=== PATIENT | male | born 1995 | race Caucasian/White ===

== ENCOUNTER → 2016-08-23 | Outpatient (CLI) | payer OTHER | LOC: BHSO 12:03 | DX: F41.1 Generalized anxiety disorder (principal) ==

== ENCOUNTER 2020-04-19 17:41 | Emergency (ER) | payer BC ==
[~2020-04-19] VITALS: Ht 172.7 cm; Wt 84.1 kg
[2020-04-19 17:52] VITALS: TEMP 98.6
[2020-04-19 19:07] VITALS: BP 124/73; PULSE 99
== END 2020-04-19 19:07 | disposition home or self-care (01) ==
LOC: COL.ER 17:41
DX: U07.1 COVID-19 (principal)

== ENCOUNTER 2020-07-18 15:56 | Emergency (ER) | payer BC ==
[~2020-07-18] VITALS: Ht 172.7 cm; Wt 84.1 kg
[2020-07-18 16:40] LABS: COLLECTION METHOD CLEAN CATCH
[2020-07-18 16:53] LABS: MUCOUS Present /lpf; PH 6 (5-8); SQUAMOUS EPITHELIAL 0-2 /hpf; URINE APPEARANCE Clear; URINE BACTERIA None Seen /hpf; URINE BILIRUBIN Negative (NEGATIVE); URINE BLOOD Negative (NEGATIVE); URINE COLOR Yellow; URINE GLUCOSE Negative (NEGATIVE); URINE KETONE Negative (NEGATIVE); URINE LEUKOCYTE ESTERASE Negative (NEGATIVE); URINE NITRATE Negative (NEGATIVE); URINE PROTEIN(semi-quant) Negative (NEGATIVE); URINE UROBILINOGEN Negative (NEGATIVE)
[2020-07-18 17:25] VITALS: BP 124/74; PULSE 80; TEMP 98.1
== END 2020-07-18 17:35 | disposition home or self-care (01) ==
LOC: COL.ER 15:56
PROVIDERS: Nurse Practitioner
DX: R30.0 Dysuria (principal)
CPT/HCPCS: J0696

== ENCOUNTER 2021-05-22 09:28 | Emergency (ER) | payer BC ==
[~2021-05-22] VITALS: Ht 172.7 cm; Wt 88.6 kg
[2021-05-22 09:34] VITALS: TEMP 99.2
[2021-05-22 09:55] LABS: BASO % 0.3 % (0.0-2.0); EOS % 0.4 % (0.0-4.0); GRAN # 4.6 K/mm3 (1.4-6.5); HEMATOCRIT 43.5 % (42.0-52.0); HEMOGLOBIN 14.9 g/dl (13.5-18.0); LYMPH # 1.5 K/mm3 (1.2-3.4); LYMPH % 21.1 % (20.0-51.0); MEAN CELL VOLUME 85 fl (80.0-100.0); MEAN CORPUSCULAR HEMOGLOBIN 29 pg (27-31); MEAN CORPUSCULAR HGB CONC 34 g/dl (33.0-37.0); MEAN PLATELET VOLUME 10.8 fl (7.4-10.4); MONO # 0.8 K/mm3 (0.1-0.6); MONO % 11.9 % (1.7-9.3); PLATELET COUNT 178 K/mm3 (130-400); RED BLOOD COUNT 5.11 M/mm3 (4.20-5.60); REDCELL DISTRIBUTION WIDTH-CV 11.9 % (11.5-14.5)
[2021-05-22 10:24] LABS: ALANINE AMINOTRANSFERASE 27 U/L (0-55); ALBUMIN 4.3 gm/dL (3.5-5.0); ALKALINE PHOSPHATASE 67 U/L (40-150); ANION GAP 10 mmol/L (7-16); AST,SGOT 27 U/L (5-34); BILIRUBIN,TOTAL 0.3 mg/dL (0.2-1.2); BLOOD UREA NITROGEN 7 mg/dL (9-21); CALCIUM 9.6 mg/dL (8.4-10.2); CARBON DIOXIDE 24 mmol/L (22-29); CHLORIDE 105 mmol/L (98-107); CREATININE, serum 1.06 mg/dL (0.72-1.25); GLUCOSE 87 mg/dL (70-99); POTASSIUM 3.9 mmol/L (3.5-4.5); SODIUM 139 mmol/L (136-145); TOTAL PROTEIN 8.5 gm/dL (6.2-8.1)
[2021-05-22 10:33] LABS: TROPONIN-I < 0.010 ng/mL (0.00-0.033)
[2021-05-22 11:13] VITALS: BP 114/62; PULSE 84
== END 2021-05-22 11:20 | disposition home or self-care (01) ==
LOC: COL.ER 09:28
PROVIDERS: Emergency Medicine
DX: R50.9 Fever, unspecified (principal); I95.9 Hypotension, unspecified; R00.1 Bradycardia, unspecified; Z20.822 Contact with and (suspected) exposure to COVID-19
CPT/HCPCS: J7030